=== PATIENT | male | born 1990 ===

== ENCOUNTER 2017-06-04 00:45 | Emergency (ER) | payer SELFPAY ==
[2017-06-04 01:13] VITALS: BP 131/95
[2017-06-04 02:09] LABS: APPEARANCE,URINE CLEAR; BILIRUBIN,URINE NEGATIVE (NEGATIVE); GLUCOSE, URINE NEGATIVE (NEGATIVE); KETONES,URINE NEGATIVE (NEGATIVE); LEUKOCYTE ESTERASE,URINE NEGATIVE (NEGATIVE); NITRITE,URINE NEGATIVE (NEGATIVE); PROTEIN,URINE NEGATIVE (NEGATIVE); URINE SPECIFIC GRAVITY 1.006; UROBILINOGEN,URINE NEGATIVE mg/dL (<2.0)
--- NOTE | 2017-06-04 02:50 | ER Document Report ---
ED General - General Chief Complaint: Testicular Pain Stated Complaint: GROIN PAIN Time Seen by Provider: 06/04/17 01:47 Notes: Patient is a 27-year-old male with a past medical history who presents with 1 week of intermittent left testicle pain. Patient does state the pain is more toward the spermatic cord on the left testicle. He states movement since to trigger the pain. Nothing improves the pain of the time. He has no history of similar symptoms in the past. Denies any dysuria, hematuria, or penile discharge or lesions. He denies any concern for sexual transmitted infections. He has not had any trauma to the area. He has not seen his primary care doctor regarding this concern. TRAVEL OUTSIDE OF THE [place] IN LAST 30 DAYS: No Past Medical History - General Information source: Patient - Social History Smoking Status: Never Smoker Frequency of alcohol use: None Drug Abuse: None Family History: Reviewed & Not Pertinent Renal/ Medical History: Denies: Hx Peritoneal Dialysis Surgical Hx: Negative Review of Systems - Review of Systems Notes: Constitutional: Negative for fever. HENT: Negative for sore throat. Eyes: Negative for visual changes. Cardiovascular: Negative for chest pain. Respiratory: Negative for shortness of breath. Gastrointestinal: Negative for abdominal pain, vomiting or diarrhea. Genitourinary: Positive for left testicular pain Musculoskeletal: Negative for back pain. Skin: Negative for rash. Neurological: Negative for headaches, weakness or numbness. 10 point ROS negative except as marked above and in HPI. Physical Exam - Vital signs Vitals: Temp Pulse Resp BP Pulse Ox 98.2 F 102 H 16 131/95 H 98 06/04/17 01:08 06/04/17 01:08 06/04/17 01:08 06/04/17 01:08 06/04/17 01:08 Interpretation: Normal Notes: PHYSICAL EXAMINATION: GENERAL: Well-appearing, well-nourished and in no acute distress. HEAD: Atraumatic, normocephalic. EYES: Pupils equal round and reactive to light, extraocular movements intact, sclera anicteric, conjunctiva are normal. ENT: nares patent, oropharynx clear without exudates. Moist mucous membranes. NECK: Normal range of motion, supple without lymphadenopathy LUNGS: Breath sounds clear to auscultation bilaterally and equal. No wheezes rales or rhonchi. HEART: Regular rate and rhythm without murmurs ABDOMEN: Soft, nontender, normoactive bowel sounds. No guarding, no rebound. No masses appreciated. : No epididymal tenderness, positive cremasteric reflex bilaterally. No focal testicular tenderness. Inguinal canals without any evidence of a hernia. EXTREMITIES: Normal range of motion, no pitting or edema. No cyanosis. NEUROLOGICAL: No focal neurological deficits. Moves all extremities spontaneously and on command. PSYCH: Normal mood, normal affect. SKIN: Warm, Dry, normal turgor, no rashes or lesions noted. Course - Re-evaluation Re-evalutation: 06/04/17 04:02 Spermatic cord irritation. There is no evidence of acute testicular torsion based on exam and history. Urinalysis unremarkable. No lesions or discharge on exam to suggest an acute sexually transmitted infection and this would not be consistent with localized pain to the left spermatic cord. Ultrasound was obtained the patient did not wait in the emergency department for the results of that test. Apparently patient told the nursing staff that he had to go to work and did understand that we would not necessarily be able to follow-up with him regarding the results of the test if he left. Patient did leave prior to me being able to discuss the need to stay in the emergency department. He is leaving AGAINST MEDICAL ADVICE - Vital Signs Vital signs: Temp Pulse Resp BP Pulse Ox 98.2 F 102 H 16 131/95 H 98 06/04/17 01:08 06/04/17 01:08 06/04/17 01:08 06/04/17 01:08 06/04/17 01:08 Discharge - Discharge Clinical Impression: Left testicular pain Condition: Good Disposition: ELOPED
--- NOTE | 2017-06-04 04:33 | RADIOLOGY REPORT (SQ) ---
EXAM DESCRIPTION: U/S SCROTUM W/DOPPLER CLINICAL HISTORY: 27 years, Male, left testicular pain COMPARISON: None. TECHNIQUE: A scale, color Doppler and spectral Doppler waveform analysis techniques were all utilized to perform this examination. LIMITATIONS: None. FINDINGS: The right testis appears homogeneously normal and measures 4.4 cm x 2.3 cm x 3.4 cm in greatest dimension. There is strong arterial and venous blood flow to the right testis using color Doppler and spectral Doppler waveform analysis techniques. Right epididymis appears normal. Left testis is homogeneously normal and measures 4.1 cm x 2.3 cm x 3.4 cm in greatest dimension. There is strong arterial and venous blood flow to the left testis using color Doppler and spectral Doppler waveform analysis techniques. The left epididymis is normal. Suspect small left hydrocele. IMPRESSION: 1. Small left hydrocele. Otherwise, normal bilateral testis ultrasound examination. 2011 [employer]- All Rights Reserved
== END 2017-06-04 03:28 | disposition left against medical advice (07) ==
LOC: ER 00:45
DX: N50.812 Left testicular pain (principal); Z53.29 Procedure and treatment not carried out because of patient's decision for other reasons
CPT/HCPCS: 76870; 81001; 93976; 99281